=== PATIENT | female | born 1975 | race Caucasian/White ===

== ENCOUNTER 2016-11-14 15:16 | Inpatient (IN) | payer OTHER, MEDICAID ==
[~2016-11-14] VITALS: Ht 165.1 cm; Wt 62.6 kg
[2016-11-14 16:03] LABS: BASOPHILS # (AUTO) 0.06 K/uL (0.00-0.20); BASOPHILS % (AUTO) 0.8 % (0.0-2.0); EOSINOPHILS # (AUTO) 0.08 K/uL (0.00-0.70); EOSINOPHILS % (AUTO) 1.09 % (1.0-6.0); HEMATOCRIT 38.9 % (36-46); HEMOGLOBIN 13.3 g/dL (12.0-16.0); LYMPHOCYTES # (AUTO) 3.5 K/uL (1.0-4.8); LYMPHOCYTES % (AUTO) 50.4 % (22.0-44.0); MEAN CORPUSCULAR HEMOGLOBIN 33.6 pg (26.0-34.0); MEAN CORPUSCULAR HGB CONC 34.2 G/dL (31.0-37.0); MEAN CORPUSCULAR VOLUME 98 fL (80-100); MONOCYTES # (AUTO) 0.3 K/uL (0.1-1.0); MONOCYTES % (AUTO) 4.3 % (2.0-9.0); NEUTROPHILS % (AUTO) 43.3 % (40.0-70.0); PLATELET COUNT (AUTO) 341 K/uL (150-450); RED BLOOD CELL COUNT(AUTO) 3.96 MIL/uL (4.00-5.20); RED CELL DISTRIBUTION WIDTH 14.4 % (11.5-14.5)
[2016-11-14] MEDS ORDERED: GABA-529 PO (16:07)
[2016-11-14 16:14] LABS: ANION GAP 9 mmol/L (8-16); CALCIUM, TOTAL 8.2 mg/dL (8.8-10.5); CARBON DIOXIDE 28 mmol/L (22-29); CHLORIDE 108 mmol/L (98-107); CREATININE 0.68 mg/dL (0.60-1.30); GLOMERULAR FILTR. RATE CALC > 60 mL/min (>60); POTASSIUM 3.7 mmol/L (3.5-5.1); SODIUM SERUM 145 mmol/L (136-145); UREA NITROGEN, BLOOD 7 mg/dL (7-18)
[2016-11-14 16:20] LABS: ALANINE AMINOTRANSFERASE 22 U/L (12-78); ALBUMIN 3.8 g/dL (3.4-5.0); ASPARTATE AMINOTRANSFERASE 20 U/L (15-37); BILIRUBIN,TOTAL 0.2 mg/dL (0.1-1.0); TOTAL PROTEIN, SERUM 7.8 g/dL (6.4-8.2)
[2016-11-14] MEDS ORDERED: ZOLPIDEM TARTRATE 10 MG TABLET PO PRN (16:30)
[2016-11-14] MEDS ORDERED: HALOPERIDOL 5 MG TABLET PO PRN (16:30)
[2016-11-14] MEDS ORDERED: LORazepam 2 MG TABLET PO PRN (16:30)
[2016-11-14] MEDS ORDERED: CYANOCOBALAMIN 1,000 MCG/ML VIAL IM ONE (16:30)
[2016-11-14] MEDS ORDERED: LORazepam 2 MG/ML VIAL IM ONE (16:45)
[2016-11-14] MEDS ORDERED: LORazepam 2 MG TABLET PO ONE (16:45)
[2016-11-14] MEDS ORDERED: DiphenhydrAMINE HCL 50 MG/ML VIAL IM ONE (16:45)
[2016-11-14] MEDS ORDERED: HALOPERIDOL LACTATE 5 MG/ML VIAL IM ONE (16:45)
[2016-11-14 23:00] VITALS: BP 103/67
[2016-11-15] VITALS (7 sets, daily range): BP systolic 90–126; BP diastolic 51–75
[2016-11-15] MEDS ORDERED: LORazepam 2 MG TABLET PO PRN (07:00)
[2016-11-15] MEDS: MULTIVITAMINS WITH MINERALS, THERAPEUTIC TABLET PO SCH (09:55)
[2016-11-15] MEDS: THIAMINE HCL 100 MG TABLET PO SCH (09:55)
[2016-11-15] MEDS: FOLIC ACID 1 MG TABLET PO SCH (09:56)
[2016-11-15] MEDS: LORazepam 2 MG TABLET PO SCH ×4 (09:56→21:24)
[2016-11-15] MEDS: SERTRALINE HCL 50 MG TABLET PO SCH (10:25)
[2016-11-15] MEDS ORDERED: ACETAMINOPHEN 325 MG TABLET PO PRN (22:15)
[2016-11-15] MEDS ORDERED: IBUPROFEN 400 MG TABLET PO PRN (22:15)
[2016-11-16 06:20] VITALS: BP 100/67
[2016-11-16 07:10] LABS: CHOL/HDL RATIO 2.3 (3.9-5.7); THYROID STIMULATING HORMONE 1.44 uIU/mL (0.36-3.74)
[2016-11-16 07:25] LABS: HEMOGLOBIN A1C 5.3 % (4.5-6.2)
[2016-11-16] MEDS ORDERED: LevETIRAcetam 250 MG TABLET PO SCH (09:00)
[2016-11-16] MEDS: LORazepam 2 MG TABLET PO SCH ×2 (09:01→12:18)
[2016-11-16] MEDS: SERTRALINE HCL 50 MG TABLET PO SCH (09:01)
[2016-11-16] MEDS: THIAMINE HCL 100 MG TABLET PO SCH (09:01)
[2016-11-16] MEDS: FOLIC ACID 1 MG TABLET PO SCH (09:01)
[2016-11-16] MEDS: MULTIVITAMINS WITH MINERALS, THERAPEUTIC TABLET PO SCH (09:01)
[2016-11-16 10:28] VITALS: BP 118/67
[2016-11-16 10:30] VITALS: BP 118/67
[2016-11-16] MEDS ORDERED: SERT50TA12 PO (11:20)
[2016-11-16] MEDS ORDERED: LEVE250T55 PO (11:24)
[2016-11-17] MEDS ORDERED: LORazepam 1 MG TABLET PO PRN (07:00)
[2016-11-17] MEDS ORDERED: LORazepam 1 MG TABLET PO SCH (09:00)
[2016-11-18] MEDS ORDERED: LORazepam 1 MG TABLET PO PRN (07:00)
== END 2016-11-16 14:05 | disposition home or self-care (01) | DRG 885 ==
LOC: EMS 15:18 → 3EC 21:00 → 3EI 11-15 20:00
DX: F32.2 Major depressive disorder, single episode, severe without psychotic features (principal); R45.851 Suicidal ideations; F10.239 Alcohol dependence with withdrawal, unspecified; K86.0 Alcohol-induced chronic pancreatitis; F41.9 Anxiety disorder, unspecified; Y90.8 Blood alcohol level of 240 mg/100 ml or more; G40.909 Epilepsy, unspecified, not intractable, without status epilepticus; R45.850 Homicidal ideations; F12.90 Cannabis use, unspecified, uncomplicated; F17.210 Nicotine dependence, cigarettes, uncomplicated
CPT/HCPCS: 83036; 84443; 96372; 99285; G0480; J1200; J1630; J2060; J3420